=== PATIENT | female | born 1970 | race Caucasian/White ===

== ENCOUNTER 2019-10-14 09:58 | Observation (INO) ==
[2019-10-14] MEDS ORDERED: Ipratropium/Albuterol Neb 3 ML ONE (10:05)
[2019-10-14] MEDS ORDERED: Albuterol 2.5 MG/3 ML NEBULIZER ONE ×3 (10:06→13:24)
[2019-10-14] MEDS ORDERED: methylPREDNISolone 125 MG/2 ML VIAL IVP ONE (10:08)
[2019-10-14 11:01] LABS: Basophils # 0.1 K/mcL (0.0-0.2); Basophils % 0.5 %; Eosinophils # 0.2 K/mcL (0.0-0.6); Eosinophils % 1.2 %; Hemoglobin 14.7 g/dL (11.5-15.4); Immature Granulocytes % 0.5 % (0-4); Lymphocytes # 3.2 K/mcL (0.6-4.6); Lymphocytes % 21.5 %; Mean Corpuscular Hemoglobin 32.3 pg (28.0-33.3); Mean Corpuscular Volume 92.3 fL (83.0-100.0); Monocytes # 0.7 K/mcL (0.0-1.3); Monocytes % 4.4 %; Neutrophils # 10.8 K/mcL (1.6-8.9); Platelet Count 245 K/mcL (140-400); Red Blood Count 4.55 M/mcL (3.82-4.97); Red Cell Distribution Width 11.9 % (11.5-14.5); Segmented Neutrophils % 71.9 %
[2019-10-14] MEDS ORDERED: levoFLOXacin 750 MG/150 ML 750 MG/150 ML BAG IVPB ONE (11:16)
[2019-10-14 11:20] LABS: Alanine Aminotransferase 11 Units/L (7-52); Albumin 4.2 g/dL (3.5-5.7); Albumin/Globulin Ratio 1.6 (1.1-2.2); Alkaline Phosphatase 78 Units/L (34-104); Aspartate Amino Transferase 13 Units/L (13-39); BUN/Creatinine Ratio 14 (6-26); Bilirubin,Total 0.3 mg/dL (0.3-1.0); Blood Urea Nitrogen 11 mg/dL (6-20); Calcium 9.3 mg/dL (8.6-10.3); Carbon Dioxide 22 mEq/L (23-29); Chloride 108 mEq/L (98-107); Creatine Kinase 59 Units/L (30-223); Globulin 2.7 g/dL (2.4-3.5); Glucose 107 mg/dL (70-105); Osmolality,Calculated 290 (280-300); Potassium 3.3 mEq/L (3.5-5.1); Sodium 140 mEq/L (136-145); Total Protein 6.9 g/dL (6.4-8.9); eGFR For African Americans > 60 (> 60); eGFR For Non-African Americans > 60 (> 60)
[2019-10-14] MEDS ORDERED: 0.9 % Sodium Chloride 1,000 ML IVC ONE (11:25)
[2019-10-14 12:01] LABS: ABG Base Excess 1 mEq/L (-2 to 3); ABG HCO3 23 mEq/L (21-27); ABG Oxygen Saturation 96 % (95-98); ABG PCO2 29 mmHg (35-45); ABG PO2 71 mmHg (85-104); ABG TCO2 24 mEq/L (20-26)
[2019-10-14] MEDS ORDERED: Albuterol 2.5 MG/3 ML NEBULIZER IH ONE (12:54)
[2019-10-14] MEDS ORDERED: Albuterol 2.5 MG/3 ML NEBULIZER IH PRN (13:24)
[2019-10-14] MEDS ORDERED: clonazePAM 1 MG TABLET PO PRN (13:24)
[2019-10-14] MEDS ORDERED: Ondansetron ODT 4 MG TAB.RAPDIS SL PRN ×2 (13:24)
[2019-10-14] MEDS ORDERED: Naloxone 0.4 MG/ML INJ IVP PRN (13:24)
[2019-10-14] MEDS: 0.9 % Sodium Chloride 1,000 ML IVC SCH ×2 (14:04→22:14)
[2019-10-14] MEDS: methylPREDNISolone 125 MG/2 ML VIAL IVP SCH (17:57)
[2019-10-14] MEDS: Ipratropium/Albuterol Neb 3 ML IH SCH ×2 (19:30→21:26)
[2019-10-15 03:57] VITALS: BP 108/68
[2019-10-15] MEDS: Ipratropium/Albuterol Neb 3 ML IH SCH ×2 (04:15→10:05)
[2019-10-15 05:49] LABS: Basophils % 0.2 %; Hematocrit 36.2 % (35.3-44.9); Hemoglobin 12.2 g/dL (11.5-15.4); Immature Granulocytes % 0.9 % (0-4); Lymphocytes # 1.3 K/mcL (0.6-4.6); Lymphocytes % 7.3 %; Mean Corpuscular HGB Conc 33.7 g/dL (31.6-35.5); Mean Corpuscular Hemoglobin 31.9 pg (28.0-33.3); Mean Corpuscular Volume 94.5 fL (83.0-100.0); Mean Platelet Volume 9.8 fL (9.4-12.4); Monocytes # 0.8 K/mcL (0.0-1.3); Monocytes % 4.5 %; Platelet Count 198 K/mcL (140-400); Red Blood Count 3.83 M/mcL (3.82-4.97); Red Cell Distribution Width 11.9 % (11.5-14.5); Segmented Neutrophils % 87.1 %; White Blood Count 17.6 K/mcL (4.3-11.1)
[2019-10-15 05:50] LABS: Neutrophils # 15.3 K/mcL (1.6-8.9)
[2019-10-15] MEDS: methylPREDNISolone 125 MG/2 ML VIAL IVP SCH (05:58)
[2019-10-15 06:06] LABS: BUN/Creatinine Ratio 13 (6-26); Blood Urea Nitrogen 9 mg/dL (6-20); Calcium 8.8 mg/dL (8.6-10.3); Carbon Dioxide 24 mEq/L (23-29); Chloride 113 mEq/L (98-107); Glucose 164 mg/dL (70-105); Osmolality,Calculated 296 (280-300); Sodium 142 mEq/L (136-145); eGFR For African Americans > 60 (> 60); eGFR For Non-African Americans > 60 (> 60)
[2019-10-15] MEDS ORDERED: Acetaminophen 325 MG TABLET PO PRN (08:58)
[2019-10-15] MEDS ORDERED: cefTRIAXone 1,000 MG in Water for inj. (sterile) 10 ML IVP SCH (09:00)
[2019-10-15] MEDS ORDERED: ARIPiprazole 10 MG TABLET PO SCH (09:00)
[2019-10-15] MEDS ORDERED: Azithromycin 500 MG in 0.9 % Sodium Chloride 250 ML IVPB SCH (14:00)
== END 2019-10-15 10:59 | disposition home or self-care (01) ==
LOC: EMEROOGRE 09:58 → INPGRE 09:58
PROVIDERS: ADMIT Internal Medicine; ATTEND Internal Medicine